=== PATIENT | female | born 1975 | race American Indian/Alaskan Native ===

== ENCOUNTER 2017-10-13 14:37 | Emergency (ER) | payer OTHER ==
[2017-10-13] MEDS ORDERED: XOPENEX IH ONE ×3 (14:46→15:05)
[2017-10-13] MEDS ORDERED: ATROVENT IH ONE ×2 (14:46→15:05)
[2017-10-13] MEDS ORDERED: MAGNESIUM SULFATE IV ONE ×2 (15:06→18:07)
[2017-10-13 15:25] LABS: BUN/Creatinine Ratio 8; Blood Urea Nitrogen 5 mg/dL (7-17); Calcium 9.6 mg/dL (8.4-10.2); Hemolysis Index 3
[2017-10-13 15:34] LABS: Basophils % (Auto) 0.3 % (0.0-1.8); Eosinophils # (Auto) 0.9 K/mm3 (0.0-0.4); Eosinophils % (Auto) 11.8 % (0.0-4.3); Hematocrit 35.6 % (30.3-42.9); Hemoglobin 11.2 gm/dl (10.1-14.3); Lymphocytes # (Auto) 1.2 K/mm3 (1.2-5.4); Lymphocytes % (Auto) 15.3 % (13.4-35.0); Mean Corpuscular HGB Conc 31 % (30-34); Monocytes # (Auto) 1.2 K/mm3 (0.0-0.8); Monocytes % (Auto) 14.8 % (0.0-7.3); Platelet Count 178 K/mm3 (140-440)
--- NOTE | 2017-10-13 15:35 | XRay Report ---
ROUTINE CHEST, TWO VIEWS: HISTORY: Shortness of breath. The trachea, heart, mediastinal contour, lung solano and bony thorax are unremarkable. IMPRESSION: Unremarkable chest x-ray.
[2017-10-13 15:37] LABS: Mean Corpuscular Hemoglobin 21 pg (28-32); Mean Corpuscular Volume 67 fl (79-97); Red Cell Distribution Width 21.5 % (13.2-15.2)
[2017-10-13] MEDS ORDERED: DUONEB *Not for PRN Use IH ONE ×2 (16:36→17:22)
[2017-10-13] MEDS ORDERED: ZITHROMAX PO ONE (16:59)
[2017-10-13] MEDS: MAGNESIUM SULFATE 2GM/50ML 2 GM/50 ML BAG IV ONE ×2 (17:18→18:09)
[2017-10-13 18:07] VITALS: BP 112/63
--- NOTE | 2017-10-13 18:09 | Emergency Department Report ---
ED Shortness of Breath HPI - General Chief Complaint: Dyspnea/Respdistress Stated Complaint: CHEST PAINS Time Seen by Provider: 10/13/17 16:42 Source: patient Mode of arrival: Ambulatory Limitations: No Limitations - History of Present Illness Initial Comments: Because of onset shortness of breath that began 5 days ago, worsening past 24 hours. Feels like her asthma. Initially her inhaler was helping, but not anymore. He continues to smoke a couple cigarettes a day. Used to smoke much heavier in the past. Afebrile. Operative cough. Denies chest pain. Patient has never been admitted or intubated for her breathing. - Related Data Previous Rx's Medication Instructions Recorded Last Taken Type Albuterol Sulfate [Ventolin HFA] 2 puff IH Q4H PRN #1 hfa.aer.ad 01/21/15 Unknown Rx Loratadine [Claritin] 10 mg PO DAILY #30 tablet 01/21/15 Unknown Rx Prednisone [predniSONE 10 mg 10 mg PO .TAPER #1 tab.ds.pk 01/21/15 Unknown Rx (6-Day Pack, 21 Tabs)] ALBUTEROL NEB's [Proventil 0.083% 2.5 mg IH TID PRN #30 neb 10/13/17 Unknown Rx NEBS] Azithromycin 250 mg PO DAILY #4 tablet 10/13/17 Unknown Rx predniSONE [Deltasone] 50 mg PO QDAY #4 tab 10/13/17 Unknown Rx Allergies Allergy/AdvReac Type Severity Reaction Status Date / Time shellfish derived Allergy Angioedema Verified 01/21/15 16:31 ED Review of Systems ROS: Stated complaint: CHEST PAINS Other details as noted in HPI Comment: All other systems reviewed and negative Respiratory: cough, SOB with exertion, wheezing ED Past Medical Hx - Past Medical History Previous Medical History?: Yes Hx Asthma: Yes - Surgical History Past Surgical History?: No - Social History Smoking Status: Current Every Day Smoker Substance Use Type: Alcohol, Prescribed - Medications Home Medications: Home Medications Medication Instructions Recorded Confirmed Last Taken Type Albuterol Sulfate [Ventolin HFA] 2 puff IH Q4H PRN #1 hfa.aer.ad 01/21/15 Unknown Rx Loratadine [Claritin] 10 mg PO DAILY #30 tablet 01/21/15 Unknown Rx Prednisone [predniSONE 10 mg 10 mg PO .TAPER #1 tab.ds.pk 01/21/15 Unknown Rx (6-Day Pack, 21 Tabs)] ALBUTEROL NEB's [Proventil 0.083% 2.5 mg IH TID PRN #30 neb 10/13/17 Unknown Rx NEBS] Azithromycin 250 mg PO DAILY #4 tablet 10/13/17 Unknown Rx predniSONE [Deltasone] 50 mg PO QDAY #4 tab 10/13/17 Unknown Rx ED Physical Exam - General Limitations: No Limitations General appearance: alert, in no apparent distress - Head Head exam: Present: atraumatic, normocephalic - Eye Eye exam: Present: normal appearance - ENT ENT exam: Present: mucous membranes moist - Neck Neck exam: Present: normal inspection - Respiratory Respiratory exam: Present: wheezes, rhonchi. Absent: respiratory distress, accessory muscle use - Cardiovascular Cardiovascular Exam: Present: regular rate, normal rhythm. Absent: systolic murmur, diastolic murmur, rubs, gallop - GI/Abdominal GI/Abdominal exam: Present: soft, normal bowel sounds. Absent: tenderness - Extremities Exam Extremities exam: Present: normal inspection - Back Exam Back exam: Present: normal inspection - Neurological Exam Neurological exam: Present: alert, oriented X3 - Psychiatric Psychiatric exam: Present: normal affect, normal mood - Skin Skin exam: Present: warm, dry, intact, normal color. Absent: rash ED Course Vital Signs 10/13/17 10/13/17 10/13/17 14:44 16:29 16:30 Temperature 98.3 F Pulse Rate 124 H 120 H Respiratory 28 H 17 17 Rate Blood Pressure 141/80 O2 Sat by Pulse 100 Oximetry 10/13/17 10/13/17 10/13/17 16:33 16:35 16:37 Temperature Pulse Rate 117 H 111 H 109 H Respiratory 18 19 17 Rate Blood Pressure O2 Sat by Pulse 99 94 100 Oximetry 10/13/17 10/13/17 10/13/17 16:39 16:41 16:43 Temperature Pulse Rate 108 H 111 H 110 H Respiratory 18 25 H 16 Rate Blood Pressure 126/76 126/76 O2 Sat by Pulse 100 100 100 Oximetry 10/13/17 10/13/17 10/13/17 16:45 16:47 16:49 Temperature Pulse Rate 112 H 128 H 136 H Respiratory 20 21 16 Rate Blood Pressure 120/84 120/84 120/84 O2 Sat by Pulse 100 99 100 Oximetry 10/13/17 10/13/17 10/13/17 16:51 16:55 16:56 Temperature Pulse Rate 125 H 119 H Respiratory 12 21 22 Rate Blood Pressure 120/84 120/84 O2 Sat by Pulse 97 94 100 Oximetry 10/13/17 10/13/17 10/13/17 17:00 17:05 17:30 Temperature 98.1 F Pulse Rate 113 H 112 H Respiratory 20 17 Rate Blood Pressure 127/73 127/73 O2 Sat by Pulse 95 96 Oximetry ED Medical Decision Making - Lab Data Result diagrams: 10/13/17 14:58 10/13/17 14:58 - EKG Data -: EKG Interpreted by Tn EKG shows normal: sinus rhythm, axis, intervals, QRS complexes, ST-T waves Rate: tachycardia - EKG Data Interpretation: no acute changes - Radiology Data Radiology results: report reviewed - Medical Decision Making 41-year-old female past history of asthma, cigarette smoker presents to the ER with progressive onset shortness of breath. History of dictation appears to be consistent with mild asthma exacerbation. Patient was given a Medrol/magnesium/ breathing treatment/azithromycin in the ER. Chest x-ray plus labs/EKG were unremarkable. Patient ambulated in the ER without any difficulty. She'll be sent home on prednisone burst, azithromycin with refills of her albuterol nebulizer. Patient will follow-up with her family doctor reading is discontinued. Cleared for discharge. - Differential Diagnosis pneumonia, PE, ACS, asthma versus COPD exacerbation, dehydration Critical care attestation.: If time is entered above; I have spent that time in minutes in the direct care of this critically ill patient, excluding procedure time. ED Disposition Clinical Impression: Asthma exacerbation Disposition: DC-01 TO HOME OR SELFCARE Is pt being admited?: No Condition: Stable Instructions: Asthma (ED) Additional Instructions: Please use your albuterol nebulizer every four hours for the next 24 hours that you are awake. Prescriptions: ALBUTEROL NEB's [Proventil 0.083% NEBS] 2.5 mg IH TID PRN #30 neb PRN Reason: Wheezing Azithromycin 250 mg PO DAILY #4 tablet predniSONE [Deltasone] 50 mg PO QDAY #4 tab Referrals: PRIMARY CARE, [Primary Care Provider] - 3-5 Days
[2017-10-13] MEDS ORDERED: MAGNESIUM SULFATE 1 GM in NACL 0.9% 50 ML IV ONE (19:00)
== END 2017-10-13 19:00 | disposition home or self-care (01) ==
LOC: ED 14:37
DX: J45.901 Unspecified asthma with (acute) exacerbation (principal); F17.200 Nicotine dependence, unspecified, uncomplicated; Z91.013 Allergy to seafood
CPT/HCPCS: 36415; 71046; 80048; 84484; 85025; 93005; 93010; 94640; 96365; 96375; 99284; J2930; J3475

== ENCOUNTER 2018-05-26 14:19 | Emergency (ER) | payer OTHER ==
[2018-05-26] MEDS ORDERED: ROBITUSSIN PO ONE (14:42)
[2018-05-26] MEDS ORDERED: DECADRON IM ONE (14:42)
[2018-05-26] MEDS ORDERED: DUONEB *Not for PRN Use IH ONE (14:42)
--- NOTE | 2018-05-26 14:42 | Emergency Department Report ---
Blank Doc - Documentation Documentation: 42 y o female with PMH asthma presents with exacerbation started yesterday, no relief with her albuterol dry coughing EXAM: some distress, no use of assessory no audible wheeze PLAN: respiratory tx duoneb, steroids cxr reevalaute
[2018-05-26] MEDS ORDERED: ATROVENT IH ONE (15:21)
[2018-05-26] MEDS ORDERED: PROVENTIL IH ONE (15:21)
[2018-05-26 15:36] LABS: Hematocrit 33.3 % (30.3-42.9); Hemoglobin 10.5 gm/dl (10.1-14.3); Mean Corpuscular HGB Conc 32 % (30-34); Platelet Count 184 K/mm3 (140-440); Red Blood Count 5.02 M/mm3 (3.65-5.03)
[2018-05-26 15:38] LABS: Mean Corpuscular Volume 66 fl (79-97); Red Cell Distribution Width 20.2 % (13.2-15.2)
--- NOTE | 2018-05-26 15:48 | Emergency Department Report ---
HPI - General Chief Complaint: Dyspnea/Respdistress Time Seen by Provider: 05/26/18 14:35 - HPI HPI: 42-year-old female presents to the emergency department with complaint of some shortness of breath, wheezing, mixed dry and productive cough over the past few days. Patient says that she's been working very long hours and feels that her body has run down. She also feels that she may have caught some type of a cold. She went home and has been using her albuterol nebulizer without much relief. She denies any fever, chest pain, nausea, vomiting, back pain or diaphoresis. No recent travel or sick contacts at home. She is a former smoker. Her primary care physician is Dr. duenas. ED Past Medical Hx - Past Medical History Previous Medical History?: Yes Hx Asthma: Yes - Surgical History Past Surgical History?: No - Social History Smoking Status: Former Smoker - Medications Home Medications: Home Medications Medication Instructions Recorded Confirmed Last Taken Type Loratadine [Claritin] 10 mg PO DAILY #30 tablet 01/21/15 Unknown Rx RX: Albuterol Sulfate [Ventolin 2 puff IH Q4H PRN #1 hfa.aer.ad 01/21/15 Unkn own Rx HFA] RX: Azithromycin 250 mg PO DAILY #4 tablet 10/13/17 Unknown Rx Benzonatate [Tessalon Perles] 100 mg PO Q8HR PRN #20 capsule 05/26/18 Unknown Rx RX: ALBUTEROL NEB's [Proventil 2.5 mg IH TID PRN #30 neb 05/26/18 Unknown Rx 0.083% NEBS] RX: predniSONE [Deltasone] 20 mg PO BID #10 tab 05/26/18 Unknown Rx ED Review of Systems ROS: Stated complaint: ASTHMA/KEANU Other details as noted in HPI Comment: All other systems reviewed and negative Constitutional: denies: chills, fever Eyes: denies: eye pain, vision change ENT: denies: ear pain, throat pain Respiratory: cough, shortness of breath, wheezing Cardiovascular: denies: chest pain, edema Gastrointestinal: denies: abdominal pain, vomiting Genitourinary: denies: dysuria, frequency Musculoskeletal: denies: back pain, arthralgia Skin: denies: rash, lesions Neurological: denies: headache, weakness Physical Exam - Physical Exam Vital Signs: Vital Signs 05/26/18 14:39 Temperature 97.6 F Pulse Rate 107 H Respiratory 22 Rate Blood Pressure 118/78 O2 Sat by Pulse 100 Oximetry Physical Exam: GENERAL: The patient is well-developed well-nourished. HEENT: Normocephalic. Atraumatic. Patient has moist mucous membranes. Boggy nasal mucosa. Oropharynx clear. EYES: Extraocular motions are intact. Pupils are equal and reactive to light bilaterally. NECK: Supple. Trachea is midline. CHEST/LUNGS: There is moderate wheezing throughout the chest. A cough is heard during examination. No tachypnea or accessory muscle use. There is no respiratory distress noted. HEART/CARDIOVASCULAR: Regular. There is mild tachycardia. There is no obvious murmur. ABDOMEN: Abdomen is soft, nontender. Patient has normal bowel sounds. There is no abdominal distention. SKIN: Skin is warm and dry. NEURO: The patient is awake, alert, and oriented. The patient is cooperative. The patient has no focal neurologic deficits. The patient has normal speech. MUSCULOSKELETAL: There is no tenderness or deformity. There is no limitation range of motion. There is no evidence of acute injury. ED Course Vital Signs 05/26/18 14:39 Temperature 97.6 F Pulse Rate 107 H Respiratory 22 Rate Blood Pressure 118/78 O2 Sat by Pulse 100 Oximetry ED Medical Decision Making - Lab Data Result diagrams: 05/26/18 15:26 05/26/18 15:26 - Radiology Data Radiology results: image reviewed interpreted by me: Chest x-ray does not show any pneumothorax, pleural effusion, pneumonia or obvio us focal consolidation. - Medical Decision Making The patient presents to the emergency department with some wheezing, coughing, shortness of breath and some cold-like symptoms. She does have [id number] bronchospasm but does not appear in any respiratory distress. Chest x-ray does not show any focal consolidation, pneumothorax, pleural effusions, pneumonia or any other acute process. Labs are unremarkable including a CBC and BMP. The patient received some Decadron and a long breathing treatment. She was reevaluated multiple times over multiple hours and says she is feeling improved. The patient was seen ambulatory prior to discharge and did not have any worsening of her breathing. The patient was given a few days of steroids, a refill of her albuterol nebulizer treatments and a cough medication. She will return to the ER with any worsening of her symptoms or any acute distress. - Differential Diagnosis asthma, pneumonia, URI Critical Care Time: No Critical care attestation.: If time is entered above; I have spent that time in minutes in the direct care o f this critically ill patient, excluding procedure time. ED Disposition Clinical Impression: URI (upper respiratory infection) Qualifiers: URI type: unspecified URI Qualified Code(s): J06.9 - Acute upper respiratory infection, unspecified Asthma exacerbation Qualifiers: Asthma severity: unspecified severity Asthma persistence: unspecified Qualified Code(s): J45.901 - Unspecified asthma with (acute) exacerbation Disposition: - TO HOME OR SELFCARE Is pt being admited?: No Condition: Stable Instructions: Asthma (ED), Upper Respiratory Infection (ED), Viral Syndrome (ED) Additional Instructions: Please follow-up with your primary care physician in the next few days. Return to the emergency Department with any worsening of your symptoms or any acute distress. Prescriptions: RX: ALBUTEROL NEB's [Proventil 0.083% NEBS] 2.5 mg IH TID PRN #30 neb PRN Reason: Wheezing Benzonatate [Tessalon Perles] 100 mg PO Q8HR PRN #20 capsule PRN Reason: Cough RX: predniSONE [Deltasone] 20 mg PO BID #10 tab Forms: Work/School Release Form(ED) Time of Disposition: 17:01
[2018-05-26 16:03] LABS: BUN/Creatinine Ratio 10; Blood Urea Nitrogen 7 mg/dL (7-17); Calcium 8.9 mg/dL (8.4-10.2); Hemolysis Index 3
[2018-05-26 16:16] LABS: Basophils % (Manual) 0 % (0.0-1.8); Total Cells Counted 100
[2018-05-26 16:17] LABS: Anisocytosis 2+; Hypochromasia 2+; Poikilocytosis 1+; Target Cells 1+
[2018-05-26 16:18] LABS: Ovalocytes 1+; Platelet Estimate Consistent w Auto
--- NOTE | 2018-05-26 16:22 | XRay Report ---
XRAY CHEST TWO VIEWS: 05/26/18 14:19:00 CLINICAL: Cough. COMPARISON: 10/13/17 FINDINGS: Normal heart and pulmonary vasculature. The lungs are normally expanded and clear.The bones and soft tissues are unremarkable. IMPRESSION: Normal chest.
[2018-05-26 16:45] VITALS: BP 133/74
== END 2018-05-26 17:22 | disposition home or self-care (01) ==
LOC: ED 14:19
DX: J45.901 Unspecified asthma with (acute) exacerbation (principal); J06.9 Acute upper respiratory infection, unspecified
CPT/HCPCS: 36415; 71046; 80048; 85007; 85025; 94640; 96372; 99284; J1100

== ENCOUNTER 2019-04-04 14:59 | Emergency (ER) | payer SELFPAY ==
[2019-04-04 15:08] VITALS: BP 127/82
[2019-04-04] MEDS ORDERED: ALBUTEROL 2.5 MG/3 ML NEBU IH ONE (15:08)
[2019-04-04] MEDS ORDERED: IPRATROPIUM 0.02% NEBU 2.5 ML IH ONE (15:08)
[2019-04-04] MEDS ORDERED: predniSONE 20 MG TAB PO ONE (15:08)
--- NOTE | 2019-04-04 15:08 | Emergency Department Report ---
Blank Doc - Documentation Documentation: 43-year-old female that presents with asthma exacerbation. This initial assessment/diagnostic orders/clinical plan/treatment(s) is/are subject to change based on patient's health status, clinical progression and re- assessment by fellow clinical providers in the ED. Further treatment and workup at subsequent clinical providers discretion. Patient/guardians urged not to elope from the ED as their condition may be serious if not clinically assessed and managed. Initial orders include: 1- Patient sent to [facility] for further evaluation and treatment 2- breathing treatment/steroids
--- NOTE | 2019-04-04 16:17 | Emergency Department Report ---
ED General Adult HPI - General Chief complaint: Dyspnea/Respdistress Stated complaint: ASTHMA ATTACK Time Seen by Provider: 04/04/19 15:06 Source: patient Mode of arrival: Ambulatory Limitations: No Limitations - History of Present Illness Initial comments: Patient is a 43-year-old [place]er female who has a history of asthma who is presenting with shortness of breath cough and congestion for the last 3-4 days. Patient has had several other coworkers who are ill as well. Patient states she does have a nebulizer machine however his nonoperational at this time. Patient denies fevers chills nausea vomiting headache or neck stiffness. Severity scale (0 -10): 7 - Related Data Previous Rx's Medication Instructions Recorded Last Taken Type Albuterol Sulfate [Ventolin HFA] 2 puff IH Q4H PRN #1 hfa.aer.ad 01/21/15 Unknown Rx Loratadine (Nf) [Claritin] 10 mg PO DAILY #30 tablet 01/21/15 Unknown Rx Azithromycin 250 mg PO DAILY #4 tablet 10/13/17 Unknown Rx ALBUTEROL NEB's [Proventil 0.083% 2.5 mg IH TID PRN #30 neb 05/26/18 Unknown Rx NEBS] Benzonatate [Tessalon Perles] 100 mg PO Q8HR PRN #20 capsule 05/26/18 Unknown Rx predniSONE [Deltasone] 20 mg PO BID #10 tab 05/26/18 Unknown Rx ALBUTEROL NEB's [Proventil 0.083% 2.5 mg IH TID PRN #20 neb 04/04/19 Unknown Rx NEBS] Nebulizer [Compact Compressor 1 each MC PRN #1 device 04/04/19 Unknown Rx Nebulizer] predniSONE [Deltasone] 20 mg PO QDAY #5 tab 04/04/19 Unknown Rx Allergies Allergy/AdvReac Type Severity Reaction Status Date / Time shellfish derived Allergy Angioedema Verified 01/21/15 16:31 ED Review of Systems ROS: Stated complaint: ASTHMA ATTACK Other details as noted in HPI Comment: All other systems reviewed and negative ED Past Medical Hx - Past Medical History Previous Medical History?: Yes Hx Asthma: Yes - Social History Smoking Status: Current Some Day Smoker Substance Use Type: None - Medications Home Medications: Home Medications Medication Instructions Recorded Confirmed Last Taken Type Albuterol Sulfate [Ventolin HFA] 2 puff IH Q4H PRN #1 hfa.aer.ad 01/21/15 Unknown Rx Loratadine (Nf) [Claritin] 10 mg PO DAILY #30 tablet 01/21/15 Unknown Rx Azithromycin 250 mg PO DAILY #4 tablet 10/13/17 Unknown Rx ALBUTEROL NEB's [Proventil 0.083% 2.5 mg IH TID PRN #30 neb 05/26/18 Unknown Rx NEBS] Benzonatate [Tessalon Perles] 100 mg PO Q8HR PRN #20 capsule 05/26/18 Unknown Rx predniSONE [Deltasone] 20 mg PO BID #10 tab 05/26/18 Unknown Rx ALBUTEROL NEB's [Proventil 0.083% 2.5 mg IH TID PRN #20 neb 04/04/19 Unknown Rx NEBS] Nebulizer [Compact Compressor 1 each MC PRN #1 device 04/04/19 Unknown Rx Nebulizer] predniSONE [Deltasone] 20 mg PO QDAY #5 tab 04/04/19 Unknown Rx ED Physical Exam - General Limitations: No Limitations General appearance: alert, in no apparent distress - Head Head exam: Present: atraumatic, normocephalic - Eye Eye exam: Present: normal appearance - ENT ENT exam: Present: mucous membranes moist - Neck Neck exam: Present: normal inspection - Respiratory Respiratory exam: Present: respiratory distress, wheezes. Absent: normal lung sounds bilaterally - Cardiovascular Cardiovascular Exam: Present: regular rate, normal rhythm, normal heart sounds. Absent: systolic murmur, diastolic murmur, rubs, gallop - GI/Abdominal GI/Abdominal exam: Present: soft, normal bowel sounds. Absent: distended, tenderness, guarding - Extremities Exam Extremities exam: Present: normal inspection - Back Exam Back exam: Present: normal inspection - Neurological Exam Neurological exam: Present: alert, oriented X3 - Psychiatric Psychiatric exam: Present: normal affect, normal mood - Skin Skin exam: Present: warm, dry, intact, normal color. Absent: rash ED Course Vital Signs 04/04/19 04/04/19 04/04/19 15:06 15:27 15:28 Temperature 97.9 F Pulse Rate 105 H 94 H Respiratory 18 17 17 Rate Blood Pressure 127/82 O2 Sat by Pulse 98 100 Oximetry ED Medical Decision Making - Medical Decision Making Patient received a neb treatment here in emergency department is feeling improved. Patient will be given a prescription for new nebulizer machine and medications for the machine. Patient also started on steroids. Critical care attestation.: If time is entered above; I have spent that time in minutes in the direct care of this critically ill patient, excluding procedure time. ED Disposition Clinical Impression: Asthma exacerbation Qualifiers: Asthma severity: moderate Asthma persistence: unspecified Qualified Code(s): J45.901 - Unspecified asthma with (acute) exacerbation Upper respiratory infection Qualifiers: URI type: unspecified viral URI Qualified Code(s): J06.9 - Acute upper respiratory infection, unspecified Disposition: DC-01 TO HOME OR SELFCARE Is pt being admited?: No Does the pt Need Aspirin: No Condition: Stable Instructions: Asthma (ED) Referrals: ADALBERTO ZHAO MD [Staff Physician] - 3-5 Days Forms: Work/School Release Form(ED) Time of Disposition: 16:17
== END 2019-04-04 16:41 | disposition home or self-care (01) ==
LOC: ED 14:59
DX: J45.901 Unspecified asthma with (acute) exacerbation (principal); J06.9 Acute upper respiratory infection, unspecified; F17.200 Nicotine dependence, unspecified, uncomplicated; Z79.899 Other long term (current) drug therapy; Z91.013 Allergy to seafood
CPT/HCPCS: 94640; 99283; J7512

== ENCOUNTER 2020-01-12 13:50 | Emergency (ER) | payer OTHER ==
[2020-01-12 14:00] VITALS: BP 142/87
[2020-01-12 14:41] LABS: Bilirubin,Urine NEG (Negative); Blood,Urine NEG (Negative); Color,Urine Straw (Yellow); Protein,Urine <15 mg/dL mg/dL (Negative); Urobilinogen,Urine < 2.0 mg/dL (<2.0); WBC,Urine < 1.0 /HPF (0.0-6.0)
[2020-01-12 14:48] LABS: RBC,Urine < 1.0 /HPF (0.0-6.0)
--- NOTE | 2020-01-12 15:21 | Emergency Department Report ---
ED Female HPI - General Chief complaint: Urogenital-Female Stated complaint: DIFF URINATING Time Seen by Provider: 01/12/20 14:05 Source: patient Mode of arrival: Ambulatory Limitations: No Limitations - History of Present Illness Initial comments: Patient is a 44-year-old F Turkish female who has no significant past medical history who is presenting with urinary retention. Patient states she has not been able to urinate despite multiple attempts to push over the last 6 hours. Patient states she has suprapubic pain is 10 out of 10 in severity. Pain is worsening. She denies nausea vomiting diarrhea abnormal vaginal bleeding. Patient states something similar happened several months ago but eventually she was able to urinate. - Related Data Previous Rx's Medication Instructions Recorded Last Taken Type Albuterol Sulfate [Ventolin HFA] 2 puff IH Q4H PRN #1 hfa.aer.ad 01/21/15 Unknown Rx Loratadine (Nf) [Claritin] 10 mg PO DAILY #30 tablet 01/21/15 Unknown Rx Azithromycin 250 mg PO DAILY #4 tablet 10/13/17 Unknown Rx ALBUTEROL NEB's [Proventil 0.083% 2.5 mg IH TID PRN #30 neb 05/26/18 Unknown Rx NEBS] Benzonatate [Tessalon Perles] 100 mg PO Q8HR PRN #20 capsule 05/26/18 Unknown Rx predniSONE [Deltasone] 20 mg PO BID #10 tab 05/26/18 Unknown Rx ALBUTEROL NEB's [Proventil 0.083% 2.5 mg IH TID PRN #20 neb 04/04/19 Unknown Rx NEBS] Nebulizer [Compact Compressor 1 each MC PRN #1 device 04/04/19 Unknown Rx Nebulizer] predniSONE [Deltasone] 20 mg PO QDAY #5 tab 04/04/19 Unknown Rx Allergies Allergy/AdvReac Type Severity Reaction Status Date / Time shellfish derived Allergy Angioedema Verified 01/21/15 16:31 ED Review of Systems ROS: Stated complaint: DIFF URINATING Other details as noted in HPI Comment: All other systems reviewed and negative ED Past Medical Hx - Past Medical History Previous Medical History?: Yes Hx Asthma: Yes Additional medical history: diff in urination afteer drinking ETOH - Surgical History Past Surgical History?: Yes Additional Surgical History: - Social History Smoking Status: Current Every Day Smoker Substance Use Type: Alcohol, Cocaine, Marijuana - Medications Home Medications: Home Medications Medication Instructions Recorded Confirmed Last Taken Type Albuterol Sulfate [Ventolin HFA] 2 puff IH Q4H PRN #1 hfa.aer.ad 01/21/15 Unknown Rx Loratadine (Nf) [Claritin] 10 mg PO DAILY #30 tablet 01/21/15 Unknown Rx Azithromycin 250 mg PO DAILY #4 tablet 10/13/17 Unknown Rx ALBUTEROL NEB's [Proventil 0.083% 2.5 mg IH TID PRN #30 neb 05/26/18 Unknown Rx NEBS] Benzonatate [Tessalon Perles] 100 mg PO Q8HR PRN #20 capsule 05/26/18 Unknown Rx predniSONE [Deltasone] 20 mg PO BID #10 tab 05/26/18 Unknown Rx ALBUTEROL NEB's [Proventil 0.083% 2.5 mg IH TID PRN #20 neb 04/04/19 Unknown Rx NEBS] Nebulizer [Compact Compressor 1 each MC PRN #1 device 04/04/19 Unknown Rx Nebulizer] predniSONE [Deltasone] 20 mg PO QDAY #5 tab 04/04/19 Unknown Rx ED Physical Exam - General Limitations: No Limitations General appearance: alert, in distress - Head Head exam: Present: atraumatic, normocephalic - Eye Eye exam: Present: normal appearance, PERRL, EOMI - ENT ENT exam: Present: mucous membranes moist - Neck Neck exam: Present: normal inspection - Respiratory Respiratory exam: Present: normal lung sounds bilaterally. Absent: respiratory distress, wheezes, rales, rhonchi - Cardiovascular Cardiovascular Exam: Present: regular rate, normal rhythm. Absent: systolic murmur, diastolic murmur, rubs, gallop - GI/Abdominal GI/Abdominal exam: Present: soft, tenderness (suprapubic), normal bowel sounds. Absent: distended, guarding, rebound - Extremities Exam Extremities exam: Present: normal inspection - Back Exam Back exam: Present: normal inspection - Neurological Exam Neurological exam: Present: alert, oriented X3 - Psychiatric Psychiatric exam: Present: normal affect, normal mood - Skin Skin exam: Present: warm, dry, intact, normal color. Absent: rash ED Course Vital Signs 01/12/20 13:57 Temperature 98.5 F Pulse Rate 134 H Respiratory 14 Rate Blood Pressure 142/87 O2 Sat by Pulse 98 Oximetry ED Medical Decision Making - Lab Data Lab Results 01/12/20 Range/Units 14:16 Urine Color Straw (Yellow) Urine Turbidity Clear (Clear) Urine pH 5.0 (5.0-7.0) Ur Specific [place] 1.004 (1.003-1.030) Urine Protein <15 mg/dl (Negative) mg/dL Urine Glucose (UA) Neg (Negative) mg/dL Urine Ketones Neg (Negative) mg/dL Urine Blood Neg (Negative) Urine Nitrite Neg (Negative) Urine Bilirubin Neg (Negative) Urine Urobilinogen < 2.0 (<2.0) mg/dL Ur Leukocyte Esterase Neg (Negative) Urine WBC (Auto) < 1.0 (0.0-6.0) /HPF Urine RBC (Auto) < 1.0 (0.0-6.0) /HPF - Medical Decision Making Patient is a 44-year-old F [place] female who states she is not been able to urinate for approximately 6 hours. Patient had a Becker catheter placed and were able to drain approximately 1200 cc of clear urine. Is unknown whether the patient had a urinary retention. After Becker was placed patient states she is feeling much improved. She has no back pain. She has had no fecal incontinence. Patient will be discharged home with follow-up with urology. Critical care attestation.: If time is entered above; I have spent that time in minutes in the direct care of this critically ill patient, excluding procedure time. ED Disposition Clinical Impression: Acute urinary retention Disposition: - TO HOME OR SELFCARE Is pt being admited?: No Does the pt Need Aspirin: No Condition: Stable Instructions: Acute Urinary Retention in Women (ED) Referrals: RACHEL MAIN MD [Staff Physician] - 3-5 Days Time of Disposition: 15:20
== END 2020-01-12 15:51 | disposition home or self-care (01) ==
LOC: ED 13:50
DX: R33.8 Other retention of urine (principal); J45.909 Unspecified asthma, uncomplicated; F17.200 Nicotine dependence, unspecified, uncomplicated; F12.10 Cannabis abuse, uncomplicated; F14.10 Cocaine abuse, uncomplicated; Z79.899 Other long term (current) drug therapy; Z91.013 Allergy to seafood
CPT/HCPCS: 51702; 81001

== ENCOUNTER 2020-04-10 09:38 | Emergency (ER) | payer OTHER ==
[2020-04-10 09:51] VITALS: BP 128/70
== END 2020-04-10 15:51 | disposition left against medical advice (07) ==
LOC: ED 09:38
DX: R10.9 Unspecified abdominal pain (principal); Z53.21 Procedure and treatment not carried out due to patient leaving prior to being seen by health care provider

== ENCOUNTER 2021-11-28 12:12 | Emergency (ER) | payer OTHER ==
[2021-11-28 12:50] VITALS: BP 147/87
[2021-11-28 14:03] LABS: Hematocrit 31.2 % (30.3-42.9); Hemoglobin 9.6 gm/dl (10.1-14.3); Mean Corpuscular HGB Conc 31 % (30-34); Platelet Count 259 K/mm3 (140-440); Red Blood Count 5.07 M/mm3 (3.65-5.03)
[2021-11-28 14:04] LABS: Mean Corpuscular Volume 62 fl (79-97); Red Cell Distribution Width 23.2 % (13.2-15.2)
[2021-11-28 14:20] LABS: Alanine Aminotransferase 12 units/L (7-56); Albumin 4.5 g/dL (3.9-5); BUN/Creatinine Ratio 11; Blood Urea Nitrogen 9 mg/dL (7-17); Calcium 9.3 mg/dL (8.4-10.2); Hemolysis Index 0
--- NOTE | 2021-11-28 15:26 | Emergency Department Report ---
ED General Adult HPI - General Chief complaint: Abdominal Pain Stated complaint: UNABLE TO UNIRATE X3 DAYS Time Seen by Provider: 11/28/21 13:43 Source: patient Mode of arrival: Ambulatory Limitations: No Limitations - History of Present Illness Initial comments: 46-year-old female with no significant past medical history reports to the ER with complaints unable to urinate since last night. Patient reports she was drinking last night and holding her urine because she did not want to urinate at the person's place that she was drinking it. Patient reports whenever she drinks sometimes she has problems urinating after drinking. Patient reports she had an episode like this on her last visit to the ER in which she had to have a Becker placed. No reports of nausea vomiting. No fever no weakness no dizziness no back pain reported. No other acute symptoms reported. Severity scale (0 -10): 10 - Related Data Previous Rx's Medication Instructions Recorded Last Taken Type Albuterol Sulfate [Ventolin HFA] 2 puff IH Q4H PRN #1 hfa.aer.ad 01/21/15 Unknown Rx Loratadine (Nf) [Claritin] 10 mg PO DAILY #30 tablet 01/21/15 Unknown Rx Azithromycin 250 mg PO DAILY #4 tablet 10/13/17 Unknown Rx ALBUTEROL NEB's [Proventil 0.083% 2.5 mg IH TID PRN #30 neb 05/26/18 Unknown Rx NEBS] Benzonatate [Tessalon Perles] 100 mg PO Q8HR PRN #20 capsule 05/26/18 Unknown Rx predniSONE [Deltasone] 20 mg PO BID #10 tab 05/26/18 Unknown Rx ALBUTEROL NEB's [Proventil 0.083% 2.5 mg IH TID PRN #20 neb 04/04/19 Unknown Rx NEBS] Nebulizer [Compact Compressor 1 each MC PRN #1 device 04/04/19 Unknown Rx Nebulizer] predniSONE [Deltasone] 20 mg PO QDAY #5 tab 04/04/19 Unknown Rx Allergies Allergy/AdvReac Type Severity Reaction Status Date / Time shellfish derived Allergy Angioedema Verified 01/21/15 16:31 ED Review of Systems ROS: Stated complaint: UNABLE TO UNIRATE X3 DAYS Other details as noted in HPI Comment: All other systems reviewed and negative Gastrointestinal: abdominal pain. denies: nausea, vomiting, diarrhea Genitourinary: urgency, other (Urinary retention) ED Past Medical Hx - Past Medical History Previous Medical History?: Yes Hx Asthma: Yes Additional medical history: diff in urination afteer drinking ETOH - Surgical History Past Surgical History?: Yes Additional Surgical History: - Social History Smoking Status: Current Every Day Smoker Substance Use Type: Alcohol - Medications Home Medications: Home Medications Medication Instructions Recorded Confirmed Last Taken Type Albuterol Sulfate [Ventolin HFA] 2 puff IH Q4H PRN #1 hfa.aer.ad 01/21/15 Unknown Rx Loratadine (Nf) [Claritin] 10 mg PO DAILY #30 tablet 01/21/15 Unknown Rx Azithromycin 250 mg PO DAILY #4 tablet 10/13/17 Unknown Rx ALBUTEROL NEB's [Proventil 0.083% 2.5 mg IH TID PRN #30 neb 05/26/18 Unknown Rx NEBS] Benzonatate [Tessalon Perles] 100 mg PO Q8HR PRN #20 capsule 05/26/18 Unknown Rx predniSONE [Deltasone] 20 mg PO BID #10 tab 05/26/18 Unknown Rx ALBUTEROL NEB's [Proventil 0.083% 2.5 mg IH TID PRN #20 neb 04/04/19 Unknown Rx NEBS] Nebulizer [Compact Compressor 1 each MC PRN #1 device 04/04/19 Unknown Rx Nebulizer] predniSONE [Deltasone] 20 mg PO QDAY #5 tab 04/04/19 Unknown Rx ED Physical Exam - General Limitations: No Limitations General appearance: alert, in no apparent distress - Head Head exam: Present: atraumatic, normocephalic - Eye Eye exam: Present: normal appearance - ENT ENT exam: Present: mucous membranes moist - Neck Neck exam: Present: normal inspection - Respiratory Respiratory exam: Present: normal lung sounds bilaterally. Absent: respiratory distress - Cardiovascular Cardiovascular Exam: Present: regular rate, normal rhythm. Absent: systolic murmur, diastolic murmur, rubs, gallop - GI/Abdominal GI/Abdominal exam: Present: soft, distended (Bladder distention), tenderness, normal bowel sounds. Absent: guarding - Extremities Exam Extremities exam: Present: normal inspection - Back Exam Back exam: Present: normal inspection - Neurological Exam Neurological exam: Present: alert, oriented X3 - Psychiatric Psychiatric exam: Present: normal affect, normal mood - Skin Skin exam: Present: warm, dry, intact, normal color. Absent: rash ED Course Vital Signs 11/28/21 12:47 Temperature 98.7 F Pulse Rate 119 H Respiratory 22 Rate Blood Pressure 147/87 [Right] O2 Sat by Pulse 100 Oximetry - Reevaluation(s) Reevaluation #1: 11/28/21 15:27 On reassessment patient reports feeling better. Decrease in patient is abdominal distention. Initial output of urination at the Becker was placed with 1600 cc. Patient informed that whenever she drinks she needs to urinate to prevent herself from having urinary retention. Patient also informed that maybe she needs to decrease her drinking or stop drinking if drinking is the main cause of her urinary retention. Patient verbalized understanding and states that she just did not want to urinate at the person's house in which she was drinking at. Patient informed that holding her urine and have recurrent urinary retention is not good for her health. ED Medical Decision Making - Lab Data Result diagrams: 11/28/21 13:47 11/28/21 13:47 - Medical Decision Making 46-year-old female with no significant past medical history reports to the ER with complaints unable to urinate since last night. Patient reports she was drinking last night and holding her urine because she did not want to urinate at the person's place that she was drinking it. Patient reports whenever she drinks sometimes she has problems urinating after drinking. Patient reports she had an episode like this on her last visit to the ER in which she had to have a Becker placed. No reports of nausea vomiting. No fever no weakness no dizziness no back pain reported. No other acute symptoms reported. On physical exam patient has abdominal distention at the area of the bladder. Becker catheter was placed additional output was 1600 cc. Patient abdomen is no longer distended and no longer having tenderness upon palpation. Labs with no acute process noted. Had a shared discussion decision making with patient about Becker catheter placement. Discussed with patient if she would like to have Becker catheter remain in place and follow her primary care and urology or if patient would like to have catheter removed and follow her primary care and urology. But report back to the ER if patient starts to have urinary retention and unable to urinate for more than 6 to 8 hours. Patient agreed to have Becker catheter removed and will follow her primary care provider as well as her urologist. And report back to the ER if she is unable to urinate. Patient stable for discharge home. Patient educated again on the importance of drinking and not holding her urine. And if drinking is the sole reason why she has urinary retention patient needs to consider abstinence from drinking or drink in little moderation. Patient agrees with plan of care and verbalized understanding. Patient informed to follow her primary care provider as needed. Vital Signs 11/28/21 12:47 Temperature 98.7 F Pulse Rate 119 H Respiratory 22 Rate Blood Pressure 147/87 [Right] O2 Sat by Pulse 100 Oximetry Vital Signs 11/28/21 12:47 Temperature 98.7 F Pulse Rate 119 H Respiratory 22 Rate Blood Pressure 147/87 [Right] O2 Sat by Pulse 100 Oximetry Lab Results 11/28/21 11/28/21 Range/Units 13:47 13:47 WBC 11.3 H (4.5-11.0) K/mm3 RBC 5.07 H (3.65-5.03) M/mm3 Hgb 9.6 L (10.1-14.3) gm/dl Hct 31.2 (30.3-42.9) % MCV 62 L (79-97) fl MCH 19 L (28-32) pg MCHC 31 (30-34) % RDW 23.2 H (13.2-15.2) % Plt Count 259 (140-440) K/mm3 Millard % (Auto) Gutter Installer Sodium 135 L (137-145) mmol/L Potassium 4.0 (3.6-5.0) mmol/L Chloride 97.5 L (98-107) mmol/L Carbon Dioxide 21 L (22-30) mmol/L Anion Gap 21 mmol/L BUN 9 (7-17) mg/dL Creatinine 0.8 (0.6-1.2) mg/dL Estimated GFR > 60 ml/min BUN/Creatinine Ratio 11 % Glucose 101 H (65-100) mg/dL Calcium 9.3 (8.4-10.2) mg/dL Total Bilirubin 0.30 (0.1-1.2) mg/dL AST 24 (5-40) units/L ALT 12 (7-56) units/L Alkaline Phosphatase 70 (35-129) units/L Total Protein 8.2 (6.3-8.2) g/dL Albumin 4.5 (3.9-5) g/dL Albumin/Globulin Ratio 1.2 % Lipase 31 (13-60) units/L Critical care attestation.: If time is entered above; I have spent that time in minutes in the direct care of this critically ill patient, excluding procedure time. ED Disposition Clinical Impression: Urinary retention Disposition: 07 LEFT AWOL/ELOPED Is pt being admited?: No Condition: Stable Instructions: Acute Urinary Retention, Female, Abdominal Pain (ED) Referrals: ADALBERTO ZHAO MD [Primary Care Provider] - 3-5 Days
[2021-11-28 15:41] LABS: WBC,Urine < 1.0 /HPF (0.0-6.0)
[2021-11-28 16:05] LABS: Bilirubin,Urine Negative (Negative); Blood,Urine Negative (Negative); Color,Urine Straw (Yellow); Protein,Urine <15 mg/dL mg/dL (Negative); RBC,Urine < 1.0 /HPF (0.0-6.0); Urobilinogen,Urine < 2.0 mg/dL (<2.0)
[2021-11-28 16:11] LABS: Anisocytosis 2+; Basophils % (Manual) 0 % (0.0-1.8); Poikilocytosis 1+; Total Cells Counted 100
[2021-11-28 16:12] LABS: Hypochromasia 2+; Platelet Estimate Consistent w Auto; Target Cells 1+
== END 2021-11-28 18:39 | disposition left against medical advice (07) ==
LOC: ED 12:12
DX: R33.9 Retention of urine, unspecified (principal); J45.909 Unspecified asthma, uncomplicated; Z91.013 Allergy to seafood; Z79.899 Other long term (current) drug therapy
CPT/HCPCS: 36415; 51702; 80053; 81001; 83690; 85007; 85025; 99282; 99283